=== PATIENT | male | born 1970 | race American Indian/Alaskan Native ===

== ENCOUNTER 2018-11-28 11:16 | Emergency (ER) | payer OTHER ==
--- NOTE | 2018-11-28 11:31 | Emergency Department Report ---
Blank Doc - Documentation Documentation: This is a 47-year-old male that presents with low blood pressure. Stated has some dizziness when has low blood pressure. HX of HTN and is taking medications. This initial assessment/diagnostic orders/clinical plan/treatment(s) is/are subject to change based on patient's health status, clinical progression and re- assessment by fellow clinical providers in the ED. Further treatment and workup at subsequent clinical providers discretion. Patient/guardians urged not to warren pe from the ED as their condition may be serious if not clinically assessed and managed. Initial orders include: 1- Patient sent to [facility] for further evaluation and treatment 2- labs
[2018-11-28] MEDS ORDERED: NACL 0.9% 1000 ML 1,000 ML IV ONE ×3 (11:58→13:53)
[2018-11-28 12:08] LABS: Basophils % (Auto) 0.6 % (0.0-1.8); Eosinophils # (Auto) 0.2 K/mm3 (0.0-0.4); Eosinophils % (Auto) 2.2 % (0.0-4.3); Hematocrit 44.7 % (35.5-45.6); Hemoglobin 15.4 gm/dl (11.8-15.2); Mean Corpuscular HGB Conc 35 % (32-34); Mean Corpuscular Volume 86 fl (84-94); Monocytes # (Auto) 0.5 K/mm3 (0.0-0.8); Platelet Count 324 K/mm3 (140-440); Red Blood Count 5.19 M/mm3 (3.65-5.03); Red Cell Distribution Width 13.4 % (13.2-15.2)
[2018-11-28 12:20] LABS: Calcium 9.7 mg/dL (8.4-10.2)
[2018-11-28 13:38] VITALS: BP 156/88
--- NOTE | 2018-11-28 14:35 | Emergency Department Report ---
ED General Adult HPI - General Chief complaint: Dizziness Stated complaint: BP LOW Time Seen by Provider: 11/28/18 11:30 Source: patient Mode of arrival: Ambulatory Limitations: No Limitations - History of Present Illness Initial comments: Patient is a 47-year-old -[place] male with past medical history of hypertension as well as diabetes who is presenting with lightheadedness. Patient states that he didn't take his blood pressure medicines today because he started feeling lightheaded yesterday. Patient took his blood pressure and it was 94/50. He denies any chest pain but does have some mild shortness of breath. Patient states there is some increased symptoms when standing. Patient denies nausea vomiting diarrhea at this time. Patient states there is no fever. Severity scale (0 -10): 0 - Related Data Allergies Allergy/AdvReac Type Severity Reaction Status Date / Time clonidine Allergy Unknown Verified 11/28/18 11:32 ED Review of Systems ROS: Stated complaint: BP LOW Other details as noted in HPI Comment: All other systems reviewed and negative ED Past Medical Hx - Past Medical History Previous Medical History?: Yes Hx Hypertension: Yes Hx Diabetes: Yes - Surgical History Past Surgical History?: No - Social History Smoking Status: Never Smoker Substance Use Type: None ED Physical Exam - General Limitations: No Limitations General appearance: alert, in no apparent distress - Head Head exam: Present: atraumatic, normocephalic - Eye Eye exam: Present: normal appearance - ENT ENT exam: Present: mucous membranes moist - Neck Neck exam: Present: normal inspection - Respiratory Respiratory exam: Present: normal lung sounds bilaterally. Absent: respiratory distress, wheezes, rales, rhonchi - Cardiovascular Cardiovascular Exam: Present: regular rate, normal rhythm, normal heart sounds. Absent: systolic murmur, diastolic murmur, rubs, gallop - GI/Abdominal GI/Abdominal exam: Present: soft, normal bowel sounds. Absent: distended, tenderness, guarding, rebound - Rectal Rectal exam: Present: deferred - Extremities Exam Extremities exam: Present: normal inspection - Back Exam Back exam: Present: normal inspection - Neurological Exam Neurological exam: Present: alert, oriented X3 - Psychiatric Psychiatric exam: Present: normal affect, normal mood - Skin Skin exam: Present: warm, dry, intact, normal color. Absent: rash ED Course Vital Signs 07/10/19 07/10/19 11:30 13:37 Temperature 97.8 F Pulse Rate 108 H 80 Respiratory 18 20 Rate Blood Pressure 110/83 Blood Pressure 156/88 [Left] O2 Sat by Pulse 98 100 Oximetry ED Medical Decision Making - Lab Data Result diagrams: 11/28/18 11:36 11/28/18 11:36 - Medical Decision Making After 2 L of fluid the patient had great improvement of his blood pressure. Patient states still feels some slight residual dizziness. Patient given third liter of fluid. Patient does have a creatinine of 2 and GFR in the 30s. Patient does not appear to need admission however I do want the patient to follow-up with his primary care physician and nephrology as an outpatient sometime this week. Patient states he does have a primary care physician and we'll give them a call. Patient's laboratory studies have been given to the patient. Patient will be discharged home. Patient did not take his blood pressure medicines today or tomorrow in case the patient is not clearing his lisinopril well secondary to the renal insufficiency. Critical care attestation.: If time is entered above; I have spent that time in minutes in the direct care of this critically ill patient, excluding procedure time. ED Disposition Clinical Impression: Renal insufficiency, Orthostatic hypotension, Hyperglycemia Disposition: DC-01 TO HOME OR SELFCARE Is pt being admited?: No Does the pt Need Aspirin: No Condition: Stable Instructions: Impaired Kidney Function (ED) Referrals: YAYA POWELL MD [Staff Physician] - 3-5 Days Time of Disposition: 14:37
== END 2018-11-28 14:58 | disposition home or self-care (01) ==
LOC: ED 11:16
DX: I95.1 Orthostatic hypotension (principal); E11.65 Type 2 diabetes mellitus with hyperglycemia; I12.9 Hypertensive chronic kidney disease with stage 1 through stage 4 chronic kidney disease, or unspecified chronic kidney disease; N18.9 Chronic kidney disease, unspecified; E11.22 Type 2 diabetes mellitus with diabetic chronic kidney disease; Z88.5 Allergy status to narcotic agent; R42 Dizziness and giddiness
CPT/HCPCS: 36415; 80048; 82962; 85025; 96360; 96361; 99283; J7030

== ENCOUNTER 2021-08-29 09:45 | Emergency (ER) | payer OTHER ==
[2021-08-29] MEDS ORDERED: TETANUS,DIPH,PERTUSS(ACELL) VACCINE 0.5 ML SYRINGE IM ONE (11:32)
--- NOTE | 2021-08-29 11:36 | Emergency Department Report ---
ED Extremity Problem HPI - General Chief complaint: Extremity Injury, Lower Stated complaint: RT BIG TOE /DIABETIC Time Seen by Provider: 08/29/21 11:16 Source: patient Mode of arrival: Ambulatory Limitations: No Limitations - History of Present Illness Initial comments: 50-year-old male who is legally blind and is type II diabetic presents to the ER with his daughter with complaints of right great toe bruising, swelling and erythema. Patient states that this morning she noticed patient to was bruised, swollen and erythematous. She states that patient told her that he stopped he still but he cannot remember exactly when. Patient does have a history of peripheral neuropathy and usually have numbness to his feet and denies any pain to the toe. Daughter denies any apparent pus drainage but she has noticed small amount of blood to the patient's socks and shoes. Complaint: other (Right great toe swelling, redness and bruisin) -: days(s) Severity scale (0 -10): 0 - Related Data Previous Rx's Medication Instructions Recorded Last Taken Type Sulfamethoxazole/Trimethoprim 1 each PO BID #14 tab 08/29/21 Unknown Rx [Bactrim DS TAB] Allergies Allergy/AdvReac Type Severity Reaction Status Date / Time clonidine Allergy Unknown Verified 11/28/18 11:32 ED Review of Systems ROS: Stated complaint: RT BIG TOE /DIABETIC Other details as noted in HPI Comment: All other systems reviewed and negative Constitutional: denies: chills, fever Eyes: denies: eye pain, eye discharge, vision change ENT: denies: ear pain, throat pain Respiratory: denies: cough, shortness of breath, wheezing Cardiovascular: denies: chest pain, palpitations Musculoskeletal: joint swelling, arthralgia Skin: other (Wound to right great toe). denies: rash, lesions, change in color, change in hair/nails, pruritus Neurological: denies: headache, weakness, numbness, paresthesias, confusion, abnormal gait, vertigo Psychiatric: denies: anxiety, depression, auditory hallucinations, visual hallucinations, homicidal thoughts, suicidal thoughts Hematological/Lymphatic: denies: easy bleeding, easy bruising, swollen glands ED Past Medical Hx - Past Medical History Hx Hypertension: Yes Hx Diabetes: Yes - Social History Smoking Status: Never Smoker Substance Use Type: Prescribed - Medications Home Medications: Home Medications Medication Instructions Recorded Confirmed Last Taken Type Sulfamethoxazole/Trimethoprim 1 each PO BID #14 tab 08/29/21 Unknown Rx [Bactrim DS TAB] ED Physical Exam - General Limitations: No Limitations General appearance: alert, in no apparent distress - Head Head exam: Present: atraumatic, normocephalic, normal inspection - Neck Neck exam: Present: normal inspection, full ROM. Absent: meningismus - Respiratory Respiratory exam: Absent: respiratory distress - Cardiovascular Cardiovascular Exam: Present: regular rate - Expanded Lower Extremity Exam Right Foot/Toe exam: Present: tenderness (There is no tenderness to the right great toe), swelling (Moderate swelling from the mid to distal aspect of the right great toe), abrasion (Small superficial abrasion noted to the plantar surface of the right great toe), ecchymosis (Moderate amount of ecchymosis noted from the mid to proximal aspect of the right great toe; There is hardened, thick crust skin noted distal aspect of right great toe but no obvious gangrene), erythema (Mild to moderate erythema associated mainly mid to proximal aspect of the right great toe without any streaking). Absent: deformity, crepidus, dislocation, amputation, puncture wound, foreign body, calcaneal tenderness, tenderness at base of 5th metatarsal, nail avulsion, subungual hematoma Neuro vascular tendon exam: Present: no vascular compromise. Absent: pulse deficit, abnormal cap refill, motor deficit, sensory deficit, tendon deficit Gait: Positive: observed and normal - Neurological Exam Neurological exam: Present: alert, oriented X3, normal gait - Psychiatric Psychiatric exam: Present: normal affect, normal mood ED Course Vital Signs 08/29/21 08/29/21 10:05 10:19 Temperature 97.8 F 97.8 F Pulse Rate 87 87 Respiratory 18 18 Rate Blood Pressure 149/91 Blood Pressure 149/91 [Right] O2 Sat by Pulse 99 99 Oximetry ED Medical Decision Making - Radiology Data Radiology results: report reviewed Patient: KADY AMIN MR#: [id number] : 1970 Acct:[id number] Age/Sex: 50 / M ADM Date: 08/29/21 Loc: ED Attending Dr: Ordering Physician: DERICK DUMAS Date of Service: 08/29/21 Procedure(s): XR toe(s) 2+V RT Accession Number(s): [id number] cc: DERICK Sims Time In Minutes: Right toe series-3 views INDICATION: right great toe swelling, injury, pain. COMPARISON: None available. IMPRESSION: Soft tissue swelling about the great toe with underlying degenerative changes at the IP and MTP joints. No acute fracture. Normal alignment. Signer Name: Maximilian Ramirez MD Signed: 08/29/2021 11:58 AM Workstation Name: [id number] Transcribed By: JEOVANNY Dictated By: Maximilian Ramirez MD Electronically Authenticated By: Maximilian Ramirez MD Signed Date/Time: 08/29/211157 DD/ 56 TD/TT: - Medical Decision Making 1233: Xray shows no acute bony destruction, fracture or dislocation. His exam is not consistent with gangrene or concern for osteomyelitis or significant cellulitis. Toe appears bruised with abrasions and crusting. No apparent nail avulsion no nailbed injury noted. Case was discussed with Dr Cox, who saw and evaluated patient. He agree with work and plan for discharge with instruction for patient to follow-up with wind energy mechanic and also given referral information to wound care clinic. Patient will be discharged home on antibiotics for any po ssible developing infection. Results, diagnosis and treatment plan was discussed with patient and his daughter. Patient was stable at time of discharge. Critical care attestation.: If time is entered above; I have spent that time in minutes in the direct care of this critically ill patient, excluding procedure time. ED Disposition Clinical Impression: Toe contusion, Toe abrasion, Hematoma of toe Disposition: 01 HOME / SELF CARE / HOMELESS Is pt being admited?: No Does the pt Need Aspirin: No Condition: Stable Instructions: Contusion, [id number], Wound Care, Adult, Abrasion, [id number] Additional Instructions: X-ray today does not show any bony injury or apparent infection. You will be prescribed antibiotic for any possible developing infection. Most importantly patient will need to follow-up with either [facility] energy mechanic or wound care clinic for further evaluation and treatment and debridement. Wound care clinic [facility] will be provided to you on discharge. Prescriptions: Sulfamethoxazole/Trimethoprim [Bactrim DS TAB] 1 each PO BID #14 tab Referrals: WALESKA BERNABE DPM [Staff Physician] - 3-5 Days [facility] [Outside] - 3-5 Days PRIMARY CARE, [Primary Care Provider] - 3-5 Days Time of Disposition: 12:20
--- NOTE | 2021-08-29 12:02 | XRay Report ---
Right toe series-3 views INDICATION: right great toe swelling, injury, pain. COMPARISON: None available. IMPRESSION: Soft tissue swelling about the great toe with underlying degenerative changes at the IP and MTP joints. No acute fracture. Normal alignment. Signer Name: Maximilian Ramirez MD Signed: 08/29/2021 11:58 AM Workstation Name: [id number]
[2021-08-29 12:35] VITALS: BP 159/104
== END 2021-08-29 12:35 | disposition home or self-care (01) ==
LOC: ED 09:45
DX: S90.121A Contusion of right lesser toe(s) without damage to nail, initial encounter (principal); S90.411A Abrasion, right great toe, initial encounter; X58.XXXA Exposure to other specified factors, initial encounter; Y93.89 Activity, other specified; Y92.89 Other specified places as the place of occurrence of the external cause; Y99.8 Other external cause status
CPT/HCPCS: 90471; 90715; 99283

== ENCOUNTER 2021-11-05 10:11 | Emergency (ER) | payer OTHER ==
[2021-11-05 10:28] VITALS: BP 146/99
[2021-11-05 11:16] LABS: Basophils % (Auto) 0.3 % (0.0-1.8); Eosinophils % (Auto) 0.6 % (0.0-4.3); Hematocrit 48.7 % (35.5-45.6); Hemoglobin 16.3 gm/dl (11.8-15.2); Lymphocytes # (Auto) 2.2 K/mm3 (1.2-5.4); Lymphocytes % (Auto) 31.5 % (13.4-35.0); Mean Corpuscular HGB Conc 33 % (32-34); Mean Corpuscular Volume 87 fl (84-94); Monocytes # (Auto) 0.3 K/mm3 (0.0-0.8); Platelet Count 388 K/mm3 (140-440); Red Blood Count 5.59 M/mm3 (3.65-5.03); Red Cell Distribution Width 13.2 % (13.2-15.2)
[2021-11-05 11:26] LABS: BUN/Creatinine Ratio 12; Blood Urea Nitrogen 17 mg/dL (9-20); Calcium 10.5 mg/dL (8.4-10.2); Hemolysis Index 21
--- NOTE | 2021-11-05 11:29 | Electrocardiograph Report ---
[facility] Test Date: 2021-11-05 Test Time: 10:34:49 Pat Name: KADY AMIN Department: Room: Gender: M Clinical Nurse: NILES ADLERB: 1970 Requested By: ED DOC Order Number: [id number] Reading MD: Maciel Anhtony Measurements Intervals [place] Rate: 111 P: 70 VT: 180 QRS: 53 QRSD: 66 T: -76 QT: 295 QTc: 401 Interpretive Statements Sinus tachycardia Consider anteroseptal infarct No previous ECG available for comparison Electronically Signed On 11-05-2021 11:28:38 EDT by Maciel Anthony
[2021-11-05 11:59] LABS: INR 0.93 (0.87-1.13); Partial Thromboplastin Time 32.5 Sec. (24.2-36.6)
== END 2021-11-06 06:20 | disposition left against medical advice (07) ==
LOC: ED 10:11
DX: R42 Dizziness and giddiness (principal); R51.9 Headache, unspecified; Z53.21 Procedure and treatment not carried out due to patient leaving prior to being seen by health care provider
CPT/HCPCS: 36415; 70450; 80048; 82962; 85025; 85610; 85730; 86850; 86900; 86901; 93005